=== PATIENT | female | born 1980 | race Caucasian/White ===

== ENCOUNTER → 2018-05-24 | Outpatient (CLI) | payer OTHER ==
[2011-07-17 15:41] VITALS: BP 98/56
[~2018-05-24] MED LIST: PENTASA500 MG PO; PERCOCET 325 MG1 TA2 PO
== END ==
LOC: RAD 09:37
DX: Z13.6 Encounter for screening for cardiovascular disorders (principal); R09.89 Other specified symptoms and signs involving the circulatory and respiratory systems

== ENCOUNTER → 2018-08-24 | Day surgery (SDC) | payer OTHER ==
[2011-07-17 15:41] VITALS: BP 98/56
== END ==
LOC: MSO 09:55
DX: J35.1 Hypertrophy of tonsils (principal); Z88.6 Allergy status to analgesic agent; Z88.8 Allergy status to other drugs, medicaments and biological substances; F17.210 Nicotine dependence, cigarettes, uncomplicated; Z90.710 Acquired absence of both cervix and uterus
CPT/HCPCS: 00170; J1100; J2405; J2704; J2710; J3010; J3490; J7120

== ENCOUNTER → 2019-07-18 | Outpatient (CLI) | payer BC ==
[2011-07-17 15:41] VITALS: BP 98/56
== END ==
LOC: LAB 15:11
DX: K50.019 Crohn's disease of small intestine with unspecified complications (principal)